=== PATIENT | female | born 1955 | race Caucasian/White ===

== ENCOUNTER → 2017-05-25 | Outpatient (CLI) | payer OTHER ==
[~2017-05-25] MED LIST: ASPIRIN81 M1 PO; CALCIUM + VITAM1 TAB PO; CALCIUM 600 +1 EAC5 PO; FISH OIL 1,001000 MG PO; LIPITOR40 MG PO; MAXZIDE-25 MG T1 TAB PO; TRIAMTERENE/HCT1 CA3 PO; VITAMIN B-121000 MC1 PO; WELLBUTRIN SR PO; ZOCOR PO; ZOLOFT50 MG PO
--- NOTE | ~2017-05-25 | CR181 ---
[facility] A Service of [facility] & [facility] RADIOLOGY TEXT RESULTS PATIENT: DICKSON VILLALBA LOCATION: [facility] : 55 UNIT #: [id number] AGE: [address]: SANTOS MELGAR SEX: F ORDER DR: [id number] [facility] [address] [place], [place] [address] [id number] O MR#: [id number] Acc #: [id number] NAME: DICKSON VILLALBA : 1955 SEX: F STUDY DATE/TIME: 05/25/2017 12:43 UNIT: [facility] ROOM: STUDY DESCRIPTION: CR Lumbar Spine 2 or 3 Views Attending Physician: Fede Ag Referring Physician: Fede Ag Ordering Physician: Fede Ag Primary Care Physician: Eulalia Hayden M.D. MEDICAL IMAGING REPORT This report is preliminary unless electronic signature is present EXAM Lumbar spine 3 views, 05/25/2017 HISTORY Low back pain and left lower extremity radiculopathy for 1 week. Patient slipped and fell on back 1 week ago. FINDINGS Three views of the lumbar spine demonstrate no fracture. The posterior vertebral bodyline is intact and there is no anterolisthesis or retrolisthesis. The disc spaces are normally maintained. Small anterior osteophytes are seen from L2-L5 and there is degenerative change involving the articular facets. Atherosclerotic calcification of the abdominal aorta is noted. 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 No acute abnormality. Dictated by... Arias Izaguirre M.D. THIS IS AN ELECTRONICALLY VERIFIED REPORT Arias Izaguirre M.D. at 05/26/2017 10:26 AM MARÍA/yuri TD: 05/25/2017 22:05 JOB #: [id number] MEDICAL IMAGING REPORT Page 1 of 1 COPY
== END | disposition home or self-care (01) ==
LOC: CRAD 12:20
DX: M54.5 Low back pain (principal); M47.896 Other spondylosis, lumbar region
CPT/HCPCS: 72100